=== PATIENT | female | born 1945 | race Hispanic/Latino ===

== ENCOUNTER 2020-12-25 15:16 | Emergency (ER) | payer SELFPAY ==
[2020-12-25] MEDS ORDERED: Ketorolac Tromethamine 30 MG/ML VIAL ONE (15:50)
== END 2020-12-25 16:53 | disposition home or self-care (01) ==
LOC: ERS 15:16
DX: M79.652 Pain in left thigh (principal); I10 Essential (primary) hypertension
CPT/HCPCS: 96372; J1885

== ENCOUNTER 2022-05-27 12:26 | Emergency (ER) | payer OTHER, SELFPAY ==
[2022-05-27] MEDS ORDERED: Ibuprofen 200 MG TAB ONE (13:58)
== END 2022-05-27 15:53 | disposition home or self-care (01) ==
LOC: ERS 12:26
DX: S52.501A Unspecified fracture of the lower end of right radius, initial encounter for closed fracture (principal); I10 Essential (primary) hypertension; W01.0XXA Fall on same level from slipping, tripping and stumbling without subsequent striking against object, initial encounter
CPT/HCPCS: 29125